=== PATIENT | male | born 1975 ===

== ENCOUNTER 2018-05-23 14:50 | Outpatient (CLI) | payer SELFPAY ==
--- NOTE | 2018-05-23 15:47 | Diagnostic Imaging Report ---
Indication: Left hip pain Technique: No IV contrast utilized. Spiral acquisitions obtained through the left hip Multiplanar reconstructions were generated. Total dose length product 762.76 mGycm. CTDIvol(s) 20.41 mGy. 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 This throws off streak artifact which may obscure pathology. There is a line of sclerosis in the left supra-acetabular region as well as a slight lateral cortical buckle and with some associated lucency centrally and in the medial cortex cortical lucency, best appreciated on the coronal images. This is asymmetric, without similar findings visible on the contralateral side No other acute fractures. No dislocations. No definite worrisome periprosthetic lucency, although streak artifact limits evaluation for such. The included right hip appears unremarkable. There is some vacuum formation in the bilateral sacroiliac joints, consistent with degenerative change Tiny bone island is seen within the ischium on the right. There is a broad-based fat-containing umbilical hernia. The soft tissues are otherwise unremarkable Impression: Line of sclerosis and a slight degree of lucency in the left acetabular roof/supra-acetabular iliac bone, suggests a stress fracture. Correlate with clinical findings, consider MRI to confirm Left hip hemiarthroplasty prosthesis. No definite unusual features. No CT findings of loosening or infection, although streak artifact limits evaluation for such; plain radiographs should also be obtained Incidental finding of mild bilateral sacroiliac degenerative change The CT scanner at [facility] is accredited by the [employer] and the scans are performed using protocols designed to limit radiation exposure to as low as reasonably achievable to attain images of sufficient resolution adequate for diagnostic evaluation.
== END 2018-05-23 16:50 | disposition home or self-care (01) ==
LOC: CAT 14:50
DX: M25.552 Pain in left hip (principal); Z96.642 Presence of left artificial hip joint